=== PATIENT | female | born 1995 | race Two or more races ===

== ENCOUNTER 2025-04-13 07:05 | Day surgery (SDC) | payer MEDICAID ==
[~2025-04-13] VITALS: Ht 162.6 cm; Wt 61.2 kg
[~2025-04-13 07:05] MED LIST: ALBU1NEB5 IN; BUDE0.253 IN; BUSP15TA60 PO; CALC280T PO; CETI10CA PO; GABA-1308 PO; HYDR-5028 PO; IPRA0.03; IPRAAER6 IN; LORA-1120 PO; METO25TA5 PO; OME20T PO; OMEP-434 PO; POM INH; PYRI60TA3 PO; TIOT1AER2 IN; TIOTCAP IN; TRAZ-227 PO; TRI05TP TOP; [UNRECOGNIZED DRUG - CODE] SC
[2025-04-13] MEDS ORDERED: fentaNYL CITRATE 100 MCG/2 ML VL IV ONE ×2 (07:15→07:30)
[2025-04-13] MEDS ORDERED: LIDOCAINE VISCOUS 2% 15ML UD PO ONE (07:15)
[2025-04-13] MEDS ORDERED: MIDAZOLAM HCL 2MG/2ML 2ml VIAL (1mg/ml) IV ONE ×2 (07:15→07:30)
[2025-04-13] MEDS ORDERED: LIDOCAINE VISCOUS 2% 15ML UD MT ONE (07:30)
[2025-04-13] MEDS ORDERED: ONDANSETRON HCL 4 MG/2 ML VIAL IV ONE (07:30)
[2025-04-13 08:23] VITALS: BP 114/74; PULSE 98; RESP 16; TEMP 98.7; O2SAT 97
[2025-04-13 08:27] VITALS: BP 116/74; PULSE 84; RESP 13; O2SAT 98
--- NOTE | 2025-04-13 08:33 | DVHOP2 ---
Operative Report Trans-Esophageal Echocardiogram PROCEDURE REPORT Date of Service: 04/13/2025 [employer] Needs Salesperson: Juan Jose Nam MD PROCEDURE PERFORMED: Transesophageal echocardiogram, conscious sedation administration and supervision, more than 15 minutes. Intra cardiac bubble study. PREOPERATIVE DIAGNOSES: r/o Valvular heart disease / MVP. DESCRIPTION OF PROCEDURE: The patient signed informed consent understanding risks, benefits and alternatives of the procedure, she wished to proceed. The patient was given 15 mL of oral viscous lidocaine. She was placed in a left lateral decubitus position and conscious sedation was administered per cath lab radiology technician protocol (2 mg of Versed and 100 mcg of Fentanyl). I administered a bite block into her mouth and a HIMANSHU probe into the mid esophagus without any difficulties or complications. Multiple planar images were obtained. Bubble study was also performed. At the completion of procedure, HIMANSHU probe was removed and there were no immediate complications. Vitals signs were stable throughout the procedure. FINDINGS: 1. Left ventricle: Left ventricle was normal sized with normal systolic function. LVEF was 60%. There was no gross wall motion abnormality seen. 2. Right ventricle: RV was normal sized with normal systolic function. 3. Left atrium: LA was normal sized. 4. Right atrium: RA was normal sized. 5. Mitral valve: Up to Moderate MVP (anterior leaflet) was seen. Mild to moderate Mitral regurgitation was seen. There was no stenosis. There was no vegetation 6. Left atrial appendage: No evidence of thrombus. 7. Aortic valve: Trileaflet valve. No stenosis. No Aortic Insufficiency was seen. There was no vegetation 8. Pulmonic valve: Trivial pulmonic insufficiency. No significant stenosis. 9. Tricuspid valve: Mild tricuspid regurgitation. There was no vegetation 10. Interatrial septum: Mobile interatrial septum (interatrial aneurysm) was seen. Positive color flow across the interatrial septum and positive bubble study was in favor of PFO. 11. Pericardium: No significant effusion. 12. Thoracic aorta: No significant plaquing. Up to Moderate Anterior Mitral leaflet Prolapse with mild to moderate Mitral Regurgitation was seen. Interatrial Aneurysm with PFO was seen. Right sided chambers were normal sized with normal function. JUAN JOSE NAM MD Apr 13, 2025 08:33
[2025-04-13 08:42] VITALS: BP 110/65; PULSE 73; RESP 13; O2SAT 96
[2025-04-13 08:57] VITALS: BP 110/56; PULSE 84; RESP 14; O2SAT 95
[2025-04-13 09:12] VITALS: BP 103/59; PULSE 78; RESP 11; O2SAT 95
== END 2025-04-13 09:25 | disposition home or self-care (01) ==
LOC: CATH 07:05
PROVIDERS: ATTEND Internal Medicine Cardiovascular Disease
DX: Q21.12 Patent foramen ovale (principal); I08.1 Rheumatic disorders of both mitral and tricuspid valves; R00.2 Palpitations; Z88.0 Allergy status to penicillin; Z88.2 Allergy status to sulfonamides; Z91.041 Radiographic dye allergy status; Z88.8 Allergy status to other drugs, medicaments and biological substances
CPT/HCPCS: 93312; J2250; J3010; J7030; 93325; 99152; J2405